=== PATIENT | male | born 1945 | race Caucasian/White ===

== ENCOUNTER 2024-11-26 05:17 | Day surgery (SDC) | payer OTHER, MEDICAID ==
[~2024-11-26] VITALS: Ht 177.8 cm; Wt 68.0 kg
[~2024-11-26 05:17] MED LIST: CYCLOPENTOLATE HCL 1% 2 ML OPHTHALMIC SOLUTION ONE; KETOROLAC TROMETHAMINE 0.5% 5 ML OPHTHALMIC SOLUTION ONE; MOXIFLOXACIN HCL 0.5% 3 ML OPHTHALMIC SOLUTION ONE; OXYTOCIN 20 UNITS in RINGERS SOLUTION,LACTATED 1,000 ML IV ONE; PHENYLEPHRINE HCL 2.5% 2 ML OPHTHALMIC SOLUTION ONE; RINGERS SOLUTION,LACTATED 500 ML IV ONE; TETRACAINE HCL/PF 0.5% 4 ML OPHTHALMIC SOLUTION ONE; TROPICAMIDE 1% 2 ML OPHTHALMIC SOLUTION ONE
[2024-11-26] MEDS ORDERED: ROPI1TAB46 PO (05:37)
[2024-11-26] MEDS ORDERED: ATOR20TA PO (05:37)
[2024-11-26] MEDS: RINGERS SOLUTION,LACTATED 500 ML IV ONE (05:50)
[2024-11-26] MEDS: TETRACAINE HCL/PF 0.5% 4 ML OPHTHALMIC SOLUTION OD ONE (05:51)
[2024-11-26] MEDS: CYCLOPENTOLATE HCL 1% 2 ML OPHTHALMIC SOLUTION OD SCH (05:51)
[2024-11-26] MEDS: KETOROLAC TROMETHAMINE 0.5% 5 ML OPHTHALMIC SOLUTION OD SCH (05:51)
[2024-11-26] MEDS: PHENYLEPHRINE HCL 2.5% 2 ML OPHTHALMIC SOLUTION OD SCH (05:51)
[2024-11-26] MEDS: TROPICAMIDE 1% 2 ML OPHTHALMIC SOLUTION OD SCH (05:51)
[2024-11-26] MEDS: MOXIFLOXACIN HCL 0.5% 3 ML OPHTHALMIC SOLUTION OD SCH (05:51)
[2024-11-26] MEDS: TETRACAINE HCL/PF 0.5% 4 ML OPHTHALMIC SOLUTION OD SCH (06:00)
[2024-11-26] MEDS ORDERED: PROPARACAINE HCL 0.5% 15 ML OPHTHALMIC SOLUTION OD ONE (06:15)
[2024-11-26] MEDS ORDERED: PrednisoLONE ACETATE 1% 5 ML OPHTHALMIC SUSPENSION ONE (06:25)
[2024-11-26] MEDS: PROPARACAINE HCL 0.5% 15 ML OPHTHALMIC SOLUTION OD ONE (06:28)
[2024-11-26] MEDS: POVIDONE-IODINE 5% 30 ML OPHTHALMIC SOLUTION ONE (07:00)
[2024-11-26] MEDS: LIDOCAINE/PF 1% 2 ML VIAL ONE (07:14)
[2024-11-26] MEDS: BALANCED SALT 15 ML OPHTHALMIC IRRIG.SOLN ONE (07:14)
[2024-11-26] MEDS: EPINEPHrine 1:1,000 [1 MG/ML] VIAL ONE (07:14)
[2024-11-26] MEDS: NEOMYCIN/POLYMYXIN B/DEXAMETH 3.5 GM OPHTHALMIC OINTMENT ONE (07:15)
[2024-11-26] MEDS ORDERED: FentaNYL CITRATE PF 100 MCG/2 ML VIAL ONE (12:00)
[2024-11-26] MEDS ORDERED: MIDAZOLAM HCL 2 MG/2 ML VIAL ONE (12:00)
== END 2024-11-26 08:25 | disposition short-term general hospital (02) ==
LOC: SURGERY 05:17 → EDSEX 07:00 → SURGERY 08:25
PROVIDERS: ATTEND Ophthalmology
DX: H25.11 Age-related nuclear cataract, right eye (principal); E78.00 Pure hypercholesterolemia, unspecified; G47.00 Insomnia, unspecified; Z79.899 Other long term (current) drug therapy; Z98.890 Other specified postprocedural states
CPT/HCPCS: 66984; 93005; J0171; J3010; J3490; J2250; J7120; V2632

== ENCOUNTER 2024-12-24 05:52 | Day surgery (SDC) | payer OTHER, MEDICAID ==
[~2024-12-24] VITALS: Ht 177.8 cm; Wt 68.0 kg
[~2024-12-24 05:52] MED LIST changes: +ATOR20TA PO; -OXYTOCIN 20 UNITS in RINGERS SOLUTION,LACTATED 1,000 ML IV ONE; +PROPARACAINE HCL 0.5% 15 ML OPHTHALMIC SOLUTION ONE; +ROPI1TAB46 PO
[2024-12-24] MEDS ORDERED: MIDAZOLAM HCL 2 MG/2 ML VIAL IVP ONE (05:53)
[2024-12-24] MEDS ORDERED: FentaNYL CITRATE PF 100 MCG/2 ML VIAL IM ONE (05:53)
[2024-12-24] MEDS ORDERED: RINGERS SOLUTION,LACTATED 1,000 ML IV ONE (06:00)
[2024-12-24] MEDS ORDERED: LIDOCAINE/PF 2% 5 ML VIAL ONE (06:50)
[2024-12-24] MEDS: PROPARACAINE HCL 0.5% 15 ML OPHTHALMIC SOLUTION OS ONE (06:54)
[2024-12-24] MEDS: TETRACAINE HCL/PF 0.5% 4 ML OPHTHALMIC SOLUTION OS ONE (06:54)
[2024-12-24] MEDS: KETOROLAC TROMETHAMINE 0.5% 5 ML OPHTHALMIC SOLUTION OS SCH (06:55)
[2024-12-24] MEDS: TETRACAINE HCL/PF 0.5% 4 ML OPHTHALMIC SOLUTION OS SCH (06:55)
[2024-12-24] MEDS: TROPICAMIDE 1% 2 ML OPHTHALMIC SOLUTION OS SCH (06:55)
[2024-12-24] MEDS: CYCLOPENTOLATE HCL 1% 2 ML OPHTHALMIC SOLUTION OS SCH (06:55)
[2024-12-24] MEDS: PHENYLEPHRINE HCL 2.5% 2 ML OPHTHALMIC SOLUTION OS SCH (06:55)
[2024-12-24] MEDS: MOXIFLOXACIN HCL 0.5% 3 ML OPHTHALMIC SOLUTION OS SCH (06:55)
[2024-12-24] MEDS ORDERED: PrednisoLONE ACETATE 1% 5 ML OPHTHALMIC SUSPENSION ONE (06:59)
[2024-12-24] MEDS: RINGERS SOLUTION,LACTATED 500 ML IV ONE (07:07)
[2024-12-24] MEDS: POVIDONE-IODINE 5% 30 ML OPHTHALMIC SOLUTION ONE (08:20)
[2024-12-24] MEDS: NEOMYCIN/POLYMYXIN B/DEXAMETH 3.5 GM OPHTHALMIC OINTMENT ONE (08:20)
[2024-12-24] MEDS: BALANCED SALT 15 ML OPHTHALMIC IRRIG.SOLN ONE (08:20)
[2024-12-24] MEDS: LIDOCAINE/PF 1% 2 ML VIAL ONE (08:20)
[2024-12-25] MEDS: EPINEPHrine 1:1,000 [1 MG/ML] VIAL ONE (08:20)
== END 2024-12-24 10:00 | disposition home or self-care (01) ==
LOC: SURGERY 05:52
PROVIDERS: ATTEND Ophthalmology
DX: H25.12 Age-related nuclear cataract, left eye (principal); G47.00 Insomnia, unspecified; E78.00 Pure hypercholesterolemia, unspecified; Z79.899 Other long term (current) drug therapy
CPT/HCPCS: 66984; J0171; J3010; J3490; J2250; J7120; V2632